=== PATIENT | male | born 1980 | race Caucasian/White ===

== ENCOUNTER 2017-01-12 11:55 | Emergency (ER) | payer BC, OTHER ==
--- NOTE | 2017-01-12 11:59 | PDOC ---
History of Present Illness - General Chief Complaint: Respiratory Stated Complaint: BODY ACHES, FEVER, WEAKNESS Time Seen by Provider: 01/12/17 11:58 - History of Present Illness Initial Comments: 01/12/17 12:11 36yo male presents ambulatory from home for eval of urinary frequency, a fever, and feeling generally weak. States he was at work last night when he started to feel sick. States he developed a mcclellan and nausea. No vomiting or diarrhea. States around 3am he took 1g tylenol prior to going to bed. States he has felt achy all over since last night. Denies cp/sob/cough. NO rhinorrhea/nasal congestion or sore throat. C/o urinary freq today. States he urinated 3x since going to bed at 3am this morning. No rashes. Pt denies blurred vision or change in vision. No meningeal signs. Pt has not had the flu vaccine. No recent travel or abx. No other complaints. 01/12/17 12:16 PMHx: denies PSHx: b/l shoulder labrum repairs Allergies: nkda home meds: denies Past History - Past Medical History Allergies/Adverse Reactions: Allergies Allergy/AdvReac Type Severity Reaction Status Date / Time No Known Allergies Allergy Verified 01/12/17 12:04 Home Medications: Ambulatory Orders NK [No Known Home Medication] 01/12/17 Review of Systems - Review of Systems Able to Perform ROS?: Yes Is the patient limited [place]ian proficient: No Constitutional: Yes: Chills, Fever, Weakness, Other (achy). No: Night Sweats HEENTM: No: Blurred Vision, Nose Congestion, Throat Pain Respiratory: No: Cough, Shortness of Breath Cardiac (ROS): No: Chest Pain, Lightheadedness, Palpitations ABD/GI: Yes: Nausea. No: Diarrhea, Vomiting : Yes: Frequency, Urgency. No: Burning, Dysuria Musculoskeletal: No: Back Pain, Neck Pain Neurological: Yes: Headache. No: Numbness, Paresthesia, Tingling, Weakness, Unsteady Gait, Ataxia All Other Systems: Reviewed and Negative *Physical Exam - Vital Signs 01/12/17 12:22 Selected Entries 01/12/17 01/12/17 11:56 12:03 Temperature 102.1 F H Pulse Rate 99 H Respiratory 15 Rate Respiratory Non-Labored Effort Blood Pressure 124/72 O2 Sat by Pulse 96 Oximetry (%) Weight 108.862 kg - Physical Exam General Appearance: Yes: Nourished, Appropriately Dressed, Other (uncomfortable , hot to touch, febrile) HEENT: positive: EOMI, CHELSEY, Normal ENT Inspection, Normal Voice, Symmetrical, TMs Normal, Pharynx Normal. negative: Nasal Congestion, Rhinorrhea Neck: positive: Trachea midline, Normal Thyroid, Supple, Other (no meningeal signs). negative: Tender Respiratory/Chest: positive: Lungs Clear, Normal Breath Sounds. negative: Respiratory Distress Cardiovascular: positive: Regular Rhythm, Regular Rate, S1, S2 Vascular Pulses: Dorsalis-Pedis (R): 2+, Doralis-Pedis (L): 2+ Gastrointestinal/Abdominal: positive: Normal Bowel Sounds, Tender (mild epigastric, no ruq ttp no suprapubic ttp, no cva ttp), Flat, Soft. negative: Guarding, Rebound Musculoskeletal: positive: Normal Inspection. negative: CVA Tenderness (R), CVA Tenderness (L) Extremity: positive: Normal Capillary Refill, Normal Inspection, Normal Range of Motion. 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 negative: Facial Droop, Numbness, Sensory Deficit, Confused, Disoriented ED Treatment Course - LABORATORY CBC & Chemistry Diagram: 01/12/17 12:27 01/12/17 12:31 Medical Decision Making - Medical Decision Making 01/12/17 12:20 a/p: 36yo male with fever and body aches -urinary freq - concern for poss UTI -flu like illness -no meningeal signs, nonfocal neuro exam -will check labs, ivf hydration, ua ucx, flu, tylenol for the fever, reglan for mcclellan -reassess -discussed plan with the patient 01/12/17 12:54 cxr - no acute pathology, clear lungs 01/12/17 12:55 WBC 8 without a shift 01/12/17 13:26 re-eval: pt feeling better. discussed lab results with the patient. FLU pending at this time. Pt resting comfortably at this time. 01/12/17 14:11 pt states feeling better, but still with mild mcclellan. will give another liter ivf hydration and toradol. 01/12/17 15:08 re-eval: pt states all symptoms resolved. feeling better. stable for d/c to home. discussed need to stay hydrated. Alternating tylenol or motrin for fever. Discussed all reasons to return to the ED and need for follow up with his PMD. Will give work note for shift tonight. Answered all questions. *DC/Admit/Observation/Transfer Diagnosis at time of Disposition: Flu-like symptoms - Discharge Dispostion Disposition: HOME Condition at time of disposition: Stable Admit: No - Referrals Referrals: Kevin Sunshine MD [Staff Physician] - - Patient Instructions Printed Discharge Instructions: DI for Viral Syndrome Additional Instructions: Please take tylenol or motrin for your headache. Please follow up with your PMD. Please return to the ED with any further concerns. Please drink plenty of fluids. - Post Discharge Activity Forms/Work/School Notes: Back to Work
[2017-01-12] MEDS ORDERED: SODIUM CHLORIDE 0.9% 1000 ML INFUS.BAG IV ONE ×2 (12:07→14:08)
[2017-01-12] MEDS ORDERED: METOCLOPRAMIDE HCL INJECTION 10 MG/2 ML VIAL IVPUSH ONE (12:07)
[2017-01-12] MEDS ORDERED: ACETAMINOPHEN 1000 MG/100 ML VIAL (NON FORMULARY) IVPB ONE (12:07)
[2017-01-12] MEDS ORDERED: ACETAMINOPHEN INJECTION 100 ML IVPB ONE (12:11)
[2017-01-12 12:18] VITALS: BP 124/72; PULSE 99; TEMP 102.1; BMI 33.5
[2017-01-12 12:47] LABS: EOSINOPHIL 0.1 % (0-4.5); MCHC 34.2 g/dl (32.0-35.9); PLATELET COUNT 206 K/MM3 (134-434); WHITE BLOOD COUNT 8.1 K/mm3 (4.0-10.8)
[2017-01-12 12:49] LABS: BASOPHIL 1.8 % (0-2.0); MCH 30.8 pg (25.7-33.7); MEAN CELL VOLUME 90.1 fl (80-96); MEAN PLT VOLUME 10.6 fl (7.5-11.1); NEUTROPHILS 81.2 % (42.8-82.8); RDW 12.1 % (11.9-15.9)
[2017-01-12 13:02] LABS: PH,URINE 8.5 (4.5-8); URINE APPEARANCE Clear; URINE BILIRUBIN Negative (NEGATIVE); URINE GLUCOSE (UA) Negative (NEGATIVE); URINE KETONE Negative (NEGATIVE); URINE LEUK ESTERASE Negative (NEGATIVE); URINE NITRITE Negative (NEGATIVE); URINE PROTEIN Trace (NEGATIVE)
[2017-01-12 13:04] LABS: ALBUMIN 4.3 g/dl (3.5-5.0); ALK PHOS 54 U/L (32-92); ANION GAP 6 (8-16); CO2 27 mmol/L (22-28); CREATININE 1.1 mg/dl (0.6-1.3); GLUCOSE,RANDOM 105 mg/dl (74-106); SGOT/AST 25 U/L (10-42); SGPT/ALT 47 U/L (10-40)
[2017-01-12 13:06] LABS: URINE BLOOD Trace-intact (NEGATIVE); URINE COLOR YELLOW
[2017-01-12 13:19] LABS: URINE BACTERIA FEW /hpf (NEGATIVE)
[2017-01-12] MEDS ORDERED: KETOROLAC TROMETHAMINE 30 MG/1 ML VIAL IVPUSH ONE (14:08)
[2017-01-12] MEDS ORDERED: KETOROLAC TROMETHAMINE 30 MG/1 ML VIAL ONE ×2 (14:15→14:20)
== END 2017-01-12 15:16 | disposition home or self-care (01) ==
LOC: FER 11:55
PROC: 3E0333Z Introduction of Anti-inflammatory into Peripheral Vein, Percutaneous Approach (ICD-10-PCS; principal; 2017-01-12)
PROC: 3E033GC Introduction of Other Therapeutic Substance into Peripheral Vein, Percutaneous Approach (ICD-10-PCS; 2017-01-12)
PROC: 3E0337Z Introduction of Electrolytic and Water Balance Substance into Peripheral Vein, Percutaneous Approach (ICD-10-PCS; 2017-01-12)
DX: J11.1 Influenza due to unidentified influenza virus with other respiratory manifestations (principal)
CPT/HCPCS: 36415; 71020-TC; 80053; 81003; 81015; 83690; 83735; 85025; 87086; 87804; 99283-25